=== PATIENT | female | born 1990 | race Caucasian/White ===

== ENCOUNTER 2019-04-27 11:35 | Emergency (ER) | payer SELFPAY ==
[~2019-04-27] VITALS: Ht 154.9 cm; Wt 73.0 kg
[2019-04-27] MEDS ORDERED: IBUPROFEN 600MG TABLET PO ONE (12:45)
[2019-04-27 14:35] VITALS: BP 124/76
== END 2019-04-27 14:58 | disposition home or self-care (01) ==
LOC: ER 11:35
DX: J01.90 Acute sinusitis, unspecified (principal)
CPT/HCPCS: 87070; 87430; 87804; 99283

== ENCOUNTER 2021-01-03 05:43 | Emergency (ER) | payer MEDICAID ==
[~2021-01-03] VITALS: Ht 157.5 cm; Wt 81.0 kg
[2021-01-03 07:41] LABS: CLARITY URINE CLEAR (CLEAR); COLOR URINE YELLOW (YELLOW); KETONES URINE TRACE (NEGATIVE); LEUKOCYTE ESTERASE URINE 1+ (NEGATIVE); NITRITE URINE NEGATIVE (NEGATIVE); OCCULT BLOOD URINE NEGATIVE (NEGATIVE); PROTEIN URINE NEGATIVE (NEGATIVE); SPECIFIC GRAVITY URINE 1.029 (1.005-1.030)
[2021-01-03] MEDS ORDERED: CEPH250C2 MT (07:59)
[2021-01-03 08:48] VITALS: BP 132/91
== END 2021-01-03 08:49 | disposition home or self-care (01) ==
LOC: ER 05:43
DX: N30.90 Cystitis, unspecified without hematuria (principal); Z87.440 Personal history of urinary (tract) infections
CPT/HCPCS: 81003; 81025; 99283